=== PATIENT | male | born 1960 | race Caucasian/White ===

== ENCOUNTER 2025-01-20 06:57 | Day surgery (SDC) | payer MEDICARE, OTHER ==
[2025-01-20] MEDS: Lactated Ringers 1,000 ML IV SCH (07:59)
[2025-01-20] MEDS ORDERED: Propofol 200 MG/20 ML SDV ONE (08:02)
[2025-01-20] MEDS ORDERED: Midazolam 1 MG/ML 2 ML SDV ONE (08:02)
[2025-01-20] MEDS ORDERED: fentaNYL 50 MCG/ML SDV ONE (08:02)
[2025-01-20 10:05] VITALS: BP 137/90; PULSE 70
== END 2025-01-20 10:14 | disposition home or self-care (01) ==
LOC: JP.SDS 06:57
PROVIDERS: ATTEND Surgery
DX: Z12.11 Encounter for screening for malignant neoplasm of colon (principal); D12.0 Benign neoplasm of cecum; D12.3 Benign neoplasm of transverse colon; D12.4 Benign neoplasm of descending colon; D12.5 Benign neoplasm of sigmoid colon; Z88.8 Allergy status to other drugs, medicaments and biological substances
CPT/HCPCS: 00811; 45380; 45385; 88305; J2250; J2704; J3010; J7120